=== PATIENT | female | born 1960 | race African-American/Black ===

== ENCOUNTER 2020-09-20 00:28 | Emergency (ER) | payer MEDICARE, MEDICAID, SELFPAY ==
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
[2020-09-20 00:47] VITALS: BP 142/62; PULSE 74; RESP 18; TEMP 36.3; O2SAT 99; BMI 30.7
[2020-09-20 01:22] LABS: MANUAL DIFF FLAG NO
[2020-09-20 01:24] LABS: Basophils Percent Auto 0.6 % (0-2); Eosinophils Absolute Auto 0.3 X10*3/uL (0.0-0.4); Eosinophils Percent Auto 3.9 % (0-4); Hemoglobin 10.5 g/dl (12.0-16.0); Imm Gran Abs Auto 0.03 X10*3/uL (0.00-0.03); Imm Gran Pct Auto 0.4 % (0.0-0.4); Lymphocytes Absolute Auto 2.3 X10*3/uL (1.2-4.9); Lymphocytes Percent Auto 33.6 % (20-40); Mean Corpuscular HGB Conc 32.8 g/dl (31.0-35.0); Mean Corpuscular Hemoglobin 28.6 pg (27.0-33.0); Mean Corpuscular Volume 87.2 fL (80-98); Mean Platelet Volume 9.5 fL (9.4-12.3); Monocytes Absolute Auto 1.1 X10*3/uL (0.1-1.2); Monocytes Percent Auto 15.4 % (2-11); Neutrophils Absolute Auto 3.2 X10*3/uL (2.0-8.3); Neutrophils Percent Auto 46.1 % (45-73); Platelet Count 280 X10*3/uL (160-400); Red Blood Count 3.67 X10*6/uL (4.20-5.50); Red Cell Distribution Width 13.9 % (11.0-16.0); White Blood Count 6.9 X10*3/uL (4.8-10.8)
--- NOTE | 2020-09-20 01:26 | PC.NURSE ---
Patient compliant with lab draw, compliant with COVID swab, pending lab results, currently snacking and refreshing, N faxed/called/spoke with Hanane/confirmed receipt of referral, denied distress, will continue to monitor.
[2020-09-20 01:33] LABS: COVID-19 Test Negative (Negative)
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
[2020-09-20 02:00] LABS: Alanine Aminotransferase 9 U/L (0-31); Albumin Level 3.7 g/dL (3.5-5.0); Alkaline Phosphatase 60 U/L (39-117); Anion Gap 14 (12-20); Aspartate Amino Transferase 8 U/L (5-31); Bilirubin Direct < 0.2 mg/dL (0.0-0.5); Bilirubin Total < 0.2 mg/dL (0.0-1.0); Blood Urea Nitrogen 14 mg/dL (9-16); Calcium 8.9 mg/dL (8.4-10.2); Carbon Dioxide 24 mmol/L (22-29); Chloride 109 mmol/L (96-108); Creatinine Clr Calc Pharmacy 109.8; Estimated Glomerular Filt Rate > 60; Glucose Random 94 mg/dL (60-115); Potassium 4.5 mmol/l (3.3-5.1); Sodium 142 mmol/L (135-145); Total Protein 6.1 g/dL (6.5-8.0)
[2020-09-20 02:11] LABS: Amphetamine Screen Urine Not Detected (Not Detect); Barbiturates, Urine Not Detected (Not Detect); Benzodiazepines Screen Urine Not Detected (Not Detect); Cannabinoid Screen Urine Not Detected (Not Detect); Cocaine Screen Urine Not Detected (Not Detect); Opiate Screen Urine Not Detected (Not Detect); Phencyclidine Screen Urine Not Detected (Not Detect)
[2020-09-20 02:45] LABS: Glucose Urine UA NEG (NEG); Leukocyte Esterase Urine NEG (NEG); Nitrite Urine NEG (NEG); Specific Gravity - Urine 1.015 (1.005-1.025); Urine Blood NEG (NEG); Urine Ketones NEG (NEG); Urine Protein NEG (NEG-TRACE)
[2020-09-20 02:46] LABS: Appearance Urine CLEAR; Color Urine YELLOW
[2020-09-20 06:19] VITALS: BP 103/36; PULSE 68; RESP 17; TEMP 36.3; O2SAT 97
--- NOTE | 2020-09-20 07:00 | PC.NURSE ---
Report received. Pt currently resting, breakfast at bedside. Pt waiting to be seen by N.
[2020-09-20 09:21] VITALS: PULSE 69; RESP 16; TEMP 37.2; O2SAT 98
[2020-09-20 16:57] VITALS: RESP 18
[2020-09-20 17:53] VITALS: BP 126/52; PULSE 83; RESP 20; TEMP 36.6; O2SAT 97
--- NOTE | 2020-09-20 19:00 | PC.NURSE ---
REPORT RECEIVED FROM MARIANNA BOURNE. PATIENT SLEEPING AT THIS TIME, NO ACUTE DISTRESS NOTED. MEDICATION RECONCILATION COMPLETED BY PREVIOUS RN, AWAITING PROVIDER REVIEW/COMPUTER INFORMATION SYSTEMS PROFESSOR. PATIENT PREVIOUSLY SEEN BY Carmen, INPATIENT BEDSEARCH, SECTION 12. WILL CONTINUE TO MONITOR.
--- NOTE | 2020-09-20 21:32 | PC.NURSE ---
PER JAYLENE (CARE TEAM), PATIENT TO BE CONSIDERED FOR ADMISSION TO TOMORROW. PT CONTINUES TO SLEEP, NO ACUTE DISTRESS NOTED. WILL CONTINUE TO MONITOR.
[2020-09-20 21:49] VITALS: BP 146/68; PULSE 76; RESP 16; TEMP 36.4; O2SAT 95
[2020-09-21 04:04] VITALS: RESP 17
--- NOTE | 2020-09-21 04:04 | PC.NURSE ---
PATIENT IS CALM/COOPERATIVE. SLEEPING AT THIS TIME, BUT HAS AWAKEN TO USE BATHROOM. PT ABLE TO MAKE NEEDS KNOWN, AND REMAINS IN BEHAVIORAL CONTROL. PER CARE TEAM, POSSIBLE PLACEMENT TO LATER TODAY OR TOMORROW. WILL CONTINUE TO MONITOR.
--- NOTE | 2020-09-21 05:46 | PC.NURSE ---
PATIENT SHOWERED. NO ACUTE DISTRESS. WILL CONTINUE TO MONITOR.
[2020-09-21 06:00] VITALS: BP 133/73; PULSE 80; RESP 18; TEMP 36.4; O2SAT 96
--- NOTE | 2020-09-21 07:04 | PC.NURSE ---
Report recieved. Pt currently eating breakfast, calm and cooperative. Denies complaints. Pt is inpatient bedsearch.
[2020-09-21 09:04] VITALS: BP 145/69; PULSE 76; TEMP 36.9; O2SAT 98
--- NOTE | 2020-09-21 16:27 | PC.NURSE ---
Pt cleared by [facility] for discharge back to senior care. food and beverage director Kerrie contacted [phone], she stated they do not have enough staff and requested for PT to stay in Emergency room until tomorrow, Kerrie was told that pt is medically and psychiatrically cleared and will need to return to senior care today. Kerrie said she would try to figure something out and call back. Provider notified.
[2020-09-21 16:37] VITALS: BP 144/80; PULSE 66; RESP 17; TEMP 36.6; O2SAT 98
== END 2020-09-21 18:02 | disposition home or self-care (01) ==
PROVIDERS: Emergency Provider Emergency Medicine
DX: F31.9 Bipolar disorder, unspecified (principal); Z20.822 Contact with and (suspected) exposure to COVID-19; Z79.899 Other long term (current) drug therapy
CPT/HCPCS: 36415; 80048; 80076; 80307; 81003; 85025; 87635; 99284; 99285

== ENCOUNTER 2022-03-24 18:54 | Emergency (ER) | payer OTHER, SELFPAY ==
--- NOTE | ~2022-03-24 | XR_ITS ---
EXAMINATION: XR KUB CLINICAL INDICATION: Reason for Exam constipation x 6 days COMPARISON: KUB 11/19/2013 TECHNIQUE: AP view of the abdomen. XR/XR KUB FINDINGS/IMPRESSION: * Gaseous distention of the right colon with a marked volume of stool within the left colon. Gas and stool is present in the rectum, suggesting a nonobstructive pattern. * No abnormal calcifications to suggest nephrolithiasis
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
[2022-03-24 19:34] VITALS: BMI 31.4
[2022-03-24 19:52] VITALS: BP 142/70; PULSE 81; RESP 18; TEMP 36.2; O2SAT 97
[2022-03-24 19:54] LABS: Glucose, Whole Blood 112 mg/dL (60-115)
[2022-03-24 21:01] LABS: COVID-19 Test Negative (Negative)
[2022-03-24 21:03] LABS: Anion Gap 15 (12-20); Blood Urea Nitrogen 18 mg/dL (9-16); Calcium 9.8 mg/dL (8.4-10.2); Carbon Dioxide 24 mmol/L (22-29); Chloride 105 mmol/L (96-108); Creatinine Clr Calc Pharmacy 95.9; Estimated Glomerular Filt Rate > 60; Glucose Random 121 mg/dL (60-115); Potassium 4.4 mmol/L (3.3-5.1); Sodium 140 mmol/L (135-145)
[2022-03-24 21:24] LABS: TSH reflex Free T4 0.41 uIU/mL (0.32-4.0)
[2022-03-24 21:32] LABS: MANUAL DIFF FLAG NO
[2022-03-24 21:35] LABS: Basophils Absolute Auto 0.1 X10*3/uL (0.0-0.2); Basophils Percent Auto 0.7 % (0-2); Eosinophils Absolute Auto 0.4 X10*3/uL (0.0-0.4); Eosinophils Percent Auto 5.3 % (0-4); Hematocrit 33.6 % (37.0-47.0); Hemoglobin 11.1 g/dl (12.0-16.0); Imm Gran Abs Auto 0.06 X10*3/uL (0.00-0.03); Imm Gran Pct Auto 0.7 % (0.0-0.4); Lymphocytes Absolute Auto 2.5 X10*3/uL (1.2-4.9); Lymphocytes Percent Auto 30.7 % (20-40); Mean Corpuscular Volume 84.6 fL (80.0-98.0); Monocytes Absolute Auto 0.6 X10*3/uL (0.1-1.2); Monocytes Percent Auto 7.7 % (2-11); Neutrophils Absolute Auto 4.5 x10*3/uL (2.0-8.3); Neutrophils Percent Auto 54.9 % (45-73); Platelet Count 254 X10*3/uL (160-400); Red Blood Count 3.97 X10*6/uL (4.20-5.50); Red Cell Distribution Width 13.3 % (11.0-16.0); White Blood Count 8.2 X10*3/uL (4.8-10.8)
[2022-03-24 21:54] LABS: Valproate 64.3 mcg/mL (50.0-100.0)
[2022-03-24 22:08] LABS: Appearance Urine HAZY; Color Urine YELLOW; Glucose Urine UA NEG (NEG); Leukocyte Esterase Urine 1+ (NEG); Nitrite Urine NEG (NEG); PH 5.5 (5.0-8.0); Specific Gravity - Urine >= 1.030 (1.005-1.025); UACC Culture Trigger YES; Urine Blood NEG (NEG); Urine Ketones 15 MG/DL (NEG); Urine Protein NEG (NEG-TRACE)
[2022-03-24 22:23] LABS: Amphetamine Screen Urine Not Detected (Not Detect); Barbiturates, Urine Not Detected (Not Detect); Benzodiazepines Screen Urine Not Detected (Not Detect); Cannabinoid Screen Urine Not Detected (Not Detect); Cocaine Screen Urine Not Detected (Not Detect); Fentanyl, urine Not Detected (Not Detect); Opiate Screen Urine Not Detected (Not Detect); Phencyclidine Screen Urine Not Detected (Not Detect)
[2022-03-24 22:25] LABS: Bacteria Urine 2+ /LPF; Mucus Urine 1+ /LPF; Squamous Epithelial Cell Urine 2+ /LPF
[2022-03-25 01:03] VITALS: BP 138/70; PULSE 87; RESP 16; TEMP 35.7; O2SAT 96
[2022-03-25] MEDS: polyethylene glycoL 3350 17 GM POWD.PACK PO ×2 (02:38→21:30)
[2022-03-25] MEDS: Nicotine Polacrilex 2 MG GUM BUCCAL ×4 (02:43→20:36)
--- NOTE | 2022-03-25 06:34 | PC.NURSE ---
Patient slept through the night, out of room for bathroom use x4, report complain of constipation Miralax administered at 0238 pending effect, med rec completed/MAR active, behavior unpredictable, BHN assessed the patient, disposition pending, norberto follow up in the morning, VSS, will continue to monitor
--- NOTE | 2022-03-25 07:18 | PC.NURSE ---
patient appears to remain asleep at present respirations are even and unlabored patient appears in no distress
--- NOTE | 2022-03-25 07:35 | PHA.MEDREC ---
Pharmacy Consult ? Medication Reconciliation Pharmacy has completed the medication reconciliation. Benztropine and clozapine entered incorrectly by overnight
[2022-03-25 07:49] VITALS: BP 125/71; PULSE 78; RESP 12; O2SAT 97
[2022-03-25] MEDS: hydrALAZINE HCl 25 MG TABLET PO ×2 (08:45→21:27)
[2022-03-25] MEDS: metFORMIN HCl 1,000 MG TABLET 1000 MG PO (08:45)
[2022-03-25] MEDS: Benztropine Mesylate 1 MG TABLET PO ×2 (08:45→21:28)
[2022-03-25] MEDS: cloZAPine 100 MG, cloZAPine 25 MG 125 MG PO (08:45)
--- NOTE | 2022-03-25 14:58 | MHC.CARE ---
Addendum entered by Sayda Guo, [facility] 03/25/22 17:38: [facility] [phone] Original Note: Per Astrid from [facility] crisis pt is cleared for D/c, however she has been struggling to get in touch with the correct person over at [facility]; has left voicemails. CARE Team recieved call from Alexis at [facility], who reports that they are not going to be taking pt back. CARE Team discussed the need for placement change with Leona from case management.
[2022-03-25] MEDS: Magnesium Citrate 300 ML SOLUTION PO (15:52)
--- NOTE | 2022-03-25 17:39 | MHC.CARE ---
Alexis calls back and reports that he has been in contact with [facility]. He reports that [facility] will not be taking pt back to their facility, siting that they were not aware of her full history. Alexis provides contact information for Dr. March [phone] who is willing to provide information to [facility] psych provider. Plan is for psych consult kevan.
[2022-03-25] MEDS: Divalproex Sodium ER 500 MG TAB.ER.24H 1000 MG PO (21:27)
[2022-03-25] MEDS: cloZAPine 200 MG, cloZAPine 25 MG 225 MG PO (21:27)
[2022-03-25] MEDS: Melatonin 3 MG TABLET PO (21:28)
[2022-03-25] MEDS: Divalproex Sodium ER 250 MG TAB.ER.24H PO (21:29)
[2022-03-25 21:54] VITALS: BP 120/46; PULSE 82
[2022-03-25 22:00] VITALS: BP 116/59
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
[2022-03-26 06:41] VITALS: BP 138/56; PULSE 75; RESP 18; TEMP 36.4; O2SAT 97
--- NOTE | 2022-03-26 07:25 | PC.NURSE ---
patient appears to remain at rest at present respirations are even and unlabored patient appears in no distress
[2022-03-26] MEDS: Nicotine Polacrilex 2 MG GUM BUCCAL ×4 (09:07→20:53)
--- NOTE | 2022-03-26 10:02 | MHC.CM.PN ---
Call placed to Ashlyn Torre re: patient placement. Awaiting return call.
[2022-03-26] MEDS: polyethylene glycoL 3350 17 GM POWD.PACK PO ×2 (11:18→20:41)
[2022-03-26] MEDS: cloZAPine 100 MG, cloZAPine 25 MG 125 MG PO (11:18)
[2022-03-26] MEDS: Divalproex Sodium ER 250 MG TAB.ER.24H PO ×2 (11:19→21:37)
[2022-03-26] MEDS: Benztropine Mesylate 1 MG TABLET PO ×2 (11:19→20:41)
[2022-03-26] MEDS: metFORMIN HCl 1,000 MG TABLET 1000 MG PO (11:19)
[2022-03-26] MEDS: hydrALAZINE HCl 25 MG TABLET PO ×2 (11:19→20:41)
[2022-03-26] MEDS: Simethicone 80 MG TAB.CHEW PO ×3 (13:59→20:41)
[2022-03-26] MEDS: Lactulose 20 GM/30 ML SOLUTION PO ×2 (13:59→20:41)
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
--- NOTE | 2022-03-26 14:17 | MHC.SW.PN ---
This typewriter repairer called Alexis at [facility] to provide a clinical update that the patient had continued to be psychiatrically cleared by N, the [facility] team, and by a accounting officer in addition to being medically cleared. Alexis reported [facility] would not accept transfer of the patient to return to her LTC facility. Alexis reported that during the four months the patient has been a resident she only had one other period of agitation which occurred within the first few days of her arriving to the facility. No behavioral plan was ever needed. Alexis initially stated that [facility] was not aware of her history of agitation but when this typewriter repairer suggested a group call with the patient's [facility] case resource manager Alvarado, Alexis reported that the facility was aware of her history but that she had not demonstrated any periods of agitation while admitted to [facility]. This typewriter repairer inquired if [facility] was working with anyone from the state for additional resources to care for this patient or start exploring the transfer process. Alexis stated that he had called [facility] but has not yet connected with anyone. This typewriter repairer expressed significant concern that [facility] was not willing to trial any behavioral plan or additional accommodations that could be provided by [facility]. This typewriter repairer has reached out the [facility] and requested a team meeting with [facility].
--- NOTE | 2022-03-26 14:22 | PC.NURSE ---
Pt seen this date for individual OT tx this date. Pt presents bright, alert, nonsensical, and with flat affect. Pt is highly preseverative with regard to discharging back to her nursing home. Pt provided with , coloring pages, word find, and sensory item to occupy her time in the POD.
[2022-03-26 14:53] LABS: Alanine Aminotransferase 66 U/L (0-31); Albumin Level 4.1 g/dL (3.5-5.0); Alkaline Phosphatase 67 U/L (39-117); Anion Gap 18 (12-20); Aspartate Amino Transferase 48 U/L (5-31); Bilirubin Total < 0.2 mg/dL (0.0-1.0); Blood Urea Nitrogen 12 mg/dL (9-16); Calcium 9.4 mg/dL (8.4-10.2); Carbon Dioxide 20 mmol/L (22-29); Chloride 108 mmol/L (96-108); Creatinine Clr Calc Pharmacy 117.6; Estimated Glomerular Filt Rate > 60; Glucose Random 133 mg/dL (60-115); Potassium 4.6 mmol/L (3.3-5.1); Sodium 141 mmol/L (135-145)
[2022-03-26 19:01] VITALS: BP 150/77; PULSE 79; RESP 18; TEMP 36.1; O2SAT 98
[2022-03-26] MEDS: Divalproex Sodium ER 500 MG TAB.ER.24H 1000 MG PO (20:41)
[2022-03-26] MEDS: Melatonin 3 MG TABLET PO (20:41)
--- NOTE | 2022-03-26 21:30 | PC.NURSE ---
Medication delay due to meds not loaded in pyxis. Pharmacy delivering medications.
[2022-03-26] MEDS: cloZAPine 200 MG, cloZAPine 25 MG 225 MG PO (21:37)
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
--- NOTE | 2022-03-27 07:45 | PC.NURSE ---
patient appears to remain at rest at present, already had morning bathroom trip to restroom, patient seems approriately behaved/cooperative patient appears in no distress
[2022-03-27] MEDS: Benztropine Mesylate 1 MG TABLET PO ×2 (08:27→20:15)
[2022-03-27] MEDS: Divalproex Sodium ER 250 MG TAB.ER.24H PO ×2 (08:28→20:22)
[2022-03-27] MEDS: cloZAPine 100 MG, cloZAPine 25 MG 125 MG PO (08:28)
[2022-03-27] MEDS: polyethylene glycoL 3350 17 GM POWD.PACK PO ×2 (08:28→20:15)
[2022-03-27] MEDS: metFORMIN HCl 1,000 MG TABLET 1000 MG PO (08:28)
[2022-03-27] MEDS: Lactulose 20 GM/30 ML SOLUTION PO ×3 (08:28→19:58)
[2022-03-27] MEDS: hydrALAZINE HCl 25 MG TABLET PO ×2 (08:29→20:15)
[2022-03-27] MEDS: Simethicone 80 MG TAB.CHEW PO ×3 (08:29→20:15)
[2022-03-27 08:39] VITALS: BP 141/73; PULSE 102; RESP 18; O2SAT 97
[2022-03-27] MEDS: Nicotine Polacrilex 2 MG GUM BUCCAL ×3 (08:51→18:41)
--- NOTE | 2022-03-27 14:43 | PC.NURSE ---
Attempt made to engage pt in OT tx however upon approach pt found to be sleeping soundly (snoring) and does not respond to this check writer. Pts attending nurse notified and aware.
--- NOTE | 2022-03-27 18:28 | MHC.CM.ED ---
Per Alexis Palomares form [facility] will be in to see patient on 03/28 @ 12 noon. CM to follow for d/c needs.
[2022-03-27 19:01] VITALS: BP 145/74; PULSE 89; RESP 18; TEMP 36.1; O2SAT 97
[2022-03-27] MEDS: Divalproex Sodium ER 500 MG TAB.ER.24H 1000 MG PO (20:15)
[2022-03-27] MEDS: Melatonin 3 MG TABLET PO (20:15)
[2022-03-27] MEDS: cloZAPine 200 MG, cloZAPine 25 MG 225 MG PO (20:22)
[2022-03-27 20:36] VITALS: BP 154/81; PULSE 96; RESP 18; O2SAT 98
[2022-03-28 06:06] VITALS: RESP 17
[2022-03-28 06:25] VITALS: BP 133/70; PULSE 87; RESP 17; TEMP 36.4; O2SAT 97
--- NOTE | 2022-03-28 06:34 | PC.NURSE ---
Patient slept through the night, no distress observed/reported, medication compliant, behavior non concerning at this time, thought process tangential, patient is cleared by [facility], patient is currently a case management case, will continue to monitor.
[2022-03-28 07:45] VITALS: BP 147/70; PULSE 98; RESP 17; TEMP 36; O2SAT 95
[2022-03-28] MEDS: Simethicone 80 MG TAB.CHEW PO ×3 (08:00→20:32)
[2022-03-28] MEDS: Lactulose 20 GM/30 ML SOLUTION PO ×3 (08:00→20:32)
[2022-03-28] MEDS: hydrALAZINE HCl 25 MG TABLET PO ×2 (08:00→20:32)
[2022-03-28] MEDS: metFORMIN HCl 1,000 MG TABLET 1000 MG PO (08:00)
[2022-03-28] MEDS: polyethylene glycoL 3350 17 GM POWD.PACK PO ×2 (08:01→20:32)
[2022-03-28] MEDS: cloZAPine 100 MG, cloZAPine 25 MG 125 MG PO (08:01)
[2022-03-28] MEDS: Divalproex Sodium ER 250 MG TAB.ER.24H PO ×2 (08:01→20:32)
[2022-03-28] MEDS: Nicotine Polacrilex 2 MG GUM BUCCAL ×4 (08:01→19:15)
[2022-03-28] MEDS: Benztropine Mesylate 1 MG TABLET PO ×2 (08:01→20:32)
[2022-03-28] MEDS: Calcium Carbonate 750 MG TAB.CHEW PO (11:07)
--- NOTE | 2022-03-28 12:32 | MHC.CARE ---
CARE team present while Alexis from [facility] interview pt for possible return back to facility. He reported that he he needed to meet with the Tx team at [facility] to determine the decision to return.
--- NOTE | 2022-03-28 15:44 | PC.NURSE ---
assumed care of pt, pt asking repeated questions about returning to [facility], some difficulty redirecting, currently waiting to hear back from [facility] RE: pt placement.
[2022-03-28] MEDS: Melatonin 3 MG TABLET PO (20:32)
[2022-03-28] MEDS: Divalproex Sodium ER 500 MG TAB.ER.24H 1000 MG PO (20:32)
[2022-03-28] MEDS: cloZAPine 200 MG, cloZAPine 25 MG 225 MG PO (20:32)
[2022-03-28 20:39] VITALS: BP 176/76; PULSE 97; RESP 20; TEMP 36.1; O2SAT 95
--- NOTE | 2022-03-29 06:52 | PC.NURSE ---
Patient slept through the night, no distress observed/reported, medication compliant, behavior non concerning at this time, patient is currently a case management case may return back to [facility], patient had an episode of bladder incontinence, VSS, will continue to monitor.
[2022-03-29 06:59] VITALS: BP 143/77; PULSE 88; RESP 17; TEMP 36.8; O2SAT 95
--- NOTE | 2022-03-29 07:21 | PC.NURSE ---
patient appears to remain at rest at present respirations are even and unlabored patient appears in no distress
[2022-03-29] MEDS: polyethylene glycoL 3350 17 GM POWD.PACK PO ×2 (08:31→20:54)
[2022-03-29] MEDS: Lactulose 20 GM/30 ML SOLUTION PO ×3 (08:31→20:54)
[2022-03-29] MEDS: Benztropine Mesylate 1 MG TABLET PO ×2 (08:32→20:55)
[2022-03-29] MEDS: Divalproex Sodium ER 250 MG TAB.ER.24H PO ×2 (08:32→20:47)
[2022-03-29] MEDS: Simethicone 80 MG TAB.CHEW PO ×3 (08:32→20:54)
[2022-03-29] MEDS: metFORMIN HCl 1,000 MG TABLET 1000 MG PO (08:32)
[2022-03-29] MEDS: hydrALAZINE HCl 25 MG TABLET PO ×2 (08:32→20:54)
[2022-03-29] MEDS: cloZAPine 100 MG, cloZAPine 25 MG 125 MG PO (08:32)
[2022-03-29] MEDS: Nicotine Polacrilex 2 MG GUM BUCCAL ×4 (08:40→21:08)
--- NOTE | 2022-03-29 12:55 | PC.NURSE ---
resting/sleeping in bed since this Rn arrival at 11am.
--- NOTE | 2022-03-29 13:27 | PC.NURSE ---
Sitting by nurses station. Calm, conversing, talking about people from facility, clothes being taken. Steady on feet. Unlabored resp, skin pwd
[2022-03-29 17:41] VITALS: BP 114/64; PULSE 85; TEMP 36.6
[2022-03-29] MEDS: cloZAPine 200 MG, cloZAPine 25 MG 225 MG PO (20:47)
[2022-03-29] MEDS: Divalproex Sodium ER 500 MG TAB.ER.24H 1000 MG PO (20:54)
[2022-03-29] MEDS: Melatonin 3 MG TABLET PO (20:55)
[2022-03-30 00:09] VITALS: BP 169/81; PULSE 100; RESP 17; TEMP 36.1; O2SAT 98
--- NOTE | 2022-03-30 06:26 | PC.NURSE ---
Patient slept through the night, no distress observed/reported, medication compliant, behavior non concerning at this time, patient is currently a case management case may return back to [facility], VSS, will continue to monitor.
[2022-03-30 08:28] VITALS: BP 148/67; PULSE 93; RESP 16; TEMP 36.3; O2SAT 96
[2022-03-30] MEDS: cloZAPine 100 MG, cloZAPine 25 MG 125 MG PO (08:31)
[2022-03-30] MEDS: metFORMIN HCl 1,000 MG TABLET 1000 MG PO (08:31)
[2022-03-30] MEDS: Benztropine Mesylate 1 MG TABLET PO ×2 (08:31→20:04)
[2022-03-30] MEDS: Divalproex Sodium ER 250 MG TAB.ER.24H PO ×2 (08:31→20:05)
[2022-03-30] MEDS: polyethylene glycoL 3350 17 GM POWD.PACK PO ×2 (08:31→20:04)
[2022-03-30] MEDS: hydrALAZINE HCl 25 MG TABLET PO ×2 (08:32→20:04)
[2022-03-30] MEDS: Simethicone 80 MG TAB.CHEW PO ×3 (08:32→20:04)
--- NOTE | 2022-03-30 08:39 | PC.NURSE ---
pt a/o x 3 no sob/maxx noted skin pink warm dry speaks in full sentences. denies any si/hi. amb (i) gait steady. pt aware of plan of care. pt refused lactulose this am stating that she had a bm earlier this am.
[2022-03-30] MEDS: Nicotine Polacrilex 2 MG GUM BUCCAL ×2 (08:43→13:45)
--- NOTE | 2022-03-30 11:39 | MHC.CM.ED ---
Patient remains in ER Pod. Patient is a LTC resident of [facility] since November. Patient came to the ER under a section 12. Patient was cleared. [facility] visited patient on-site on Thursday. Do not anticipate to hear anything about patient returning to [facility] before Thursday. Continue to monitor for d/c needs.
[2022-03-30 15:53] VITALS: BP 137/77; PULSE 104; RESP 16; TEMP 36.3; O2SAT 96
--- NOTE | 2022-03-30 16:12 | PC.NURSE ---
calm. taking meds as ordered. no outbursts. showering at this time.
[2022-03-30] MEDS: Divalproex Sodium ER 500 MG TAB.ER.24H 1000 MG PO (20:04)
[2022-03-30] MEDS: Melatonin 3 MG TABLET PO (20:04)
[2022-03-30] MEDS: cloZAPine 200 MG, cloZAPine 25 MG 225 MG PO (20:05)
[2022-03-30 23:52] VITALS: RESP 18
--- NOTE | 2022-03-31 06:14 | PC.NURSE ---
Patient slept through the night, no distress observed/reported, medication compliant, refused HS lactulose by reporting that her bowel movement is now fine, behavior non concerning at this time, patient is currently a case management case, no update on returning back to [facility], VSS, will continue to monitor.
--- NOTE | 2022-03-31 07:40 | PC.NURSE ---
this instructional writer assumed care of this pt at 0700, pt in room eating breakfast. no complaints.
[2022-03-31 07:51] VITALS: BP 169/76; PULSE 83; RESP 16; TEMP 36.2; O2SAT 95
[2022-03-31] MEDS: metFORMIN HCl 1,000 MG TABLET 1000 MG PO (08:22)
[2022-03-31] MEDS: Benztropine Mesylate 1 MG TABLET PO ×2 (08:22→20:54)
[2022-03-31] MEDS: Simethicone 80 MG TAB.CHEW PO ×3 (08:22→20:54)
[2022-03-31 08:23] LABS: Neut%MD 42.2 %; Neutrophils Absolute Auto 3.2 x10*3/uL (2.0-8.3); WBCANC 7.5 X10*3/uL
[2022-03-31] MEDS: polyethylene glycoL 3350 17 GM POWD.PACK PO ×2 (08:24→20:54)
[2022-03-31] MEDS: hydrALAZINE HCl 25 MG TABLET PO ×2 (08:25→20:54)
[2022-03-31] MEDS: Nicotine Polacrilex 2 MG GUM BUCCAL ×3 (08:27→22:13)
--- NOTE | 2022-03-31 08:42 | PC.NURSE ---
Addendum entered by Josh Calvillo RN 03/31/22 08:45: PT REQUESTED NICORETTE GUM, GUM GIVEN DOCUMENTED. Original Note: THIS ROLLER COASTER ENGINEER ASSUMED CARE OF THIS PT AT 0700. PT ATE BREAKFAST IN HER ROOM. MEDS GIVEN DOCUMENTED. PT CURRENTLY SITTING IN COMMON AREA. NO COMPLAINTS. WILL CONTINUE TO OBSERVE.
[2022-03-31] MEDS: cloZAPine 100 MG, cloZAPine 25 MG 125 MG PO (09:20)
[2022-03-31] MEDS: Divalproex Sodium ER 250 MG TAB.ER.24H PO ×2 (09:20→20:54)
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
[2022-03-31] MEDS: Divalproex Sodium ER 500 MG TAB.ER.24H 1000 MG PO (20:54)
[2022-03-31] MEDS: cloZAPine 200 MG, cloZAPine 25 MG 225 MG PO (20:54)
[2022-03-31] MEDS: Melatonin 3 MG TABLET PO (20:54)
[2022-03-31 20:59] VITALS: BP 171/73; PULSE 92; RESP 16; O2SAT 96
--- NOTE | 2022-04-01 05:42 | PC.NURSE ---
Patient slept through the night, no distress observed/reported, medication compliant, refused HS lactulose, behavior non concerning at this time, patient is currently a case management case, no update on returning back to [facility], VSS, will continue to monitor
--- NOTE | 2022-04-01 07:20 | PC.NURSE ---
patient appears to remain asleep at present respirations are even and unlabored patient appears in no distress
[2022-04-01] MEDS: Benztropine Mesylate 1 MG TABLET PO ×2 (08:50→20:29)
[2022-04-01] MEDS: Nicotine Polacrilex 2 MG GUM BUCCAL ×3 (08:54→18:17)
[2022-04-01] MEDS: Divalproex Sodium ER 250 MG TAB.ER.24H PO ×2 (08:54→20:35)
[2022-04-01] MEDS: polyethylene glycoL 3350 17 GM POWD.PACK PO ×2 (08:54→20:29)
[2022-04-01] MEDS: Simethicone 80 MG TAB.CHEW PO ×3 (08:54→20:29)
[2022-04-01] MEDS: cloZAPine 100 MG, cloZAPine 25 MG 125 MG PO (08:55)
[2022-04-01] MEDS: hydrALAZINE HCl 25 MG TABLET PO ×2 (08:55→21:11)
[2022-04-01] MEDS: metFORMIN HCl 1,000 MG TABLET 1000 MG PO (08:56)
--- NOTE | 2022-04-01 15:19 | PC.NURSE ---
Attempt made to engage pt in individual OT tx however pt presents highly nonsensical and unable to participate in various interventions provided.
[2022-04-01] MEDS: Calcium Carbonate 750 MG TAB.CHEW PO (17:14)
[2022-04-01] MEDS: Lactulose 20 GM/30 ML SOLUTION PO (20:28)
[2022-04-01] MEDS: Divalproex Sodium ER 500 MG TAB.ER.24H 1000 MG PO (20:29)
[2022-04-01] MEDS: Melatonin 3 MG TABLET PO (20:29)
[2022-04-01] MEDS: cloZAPine 200 MG, cloZAPine 25 MG 225 MG PO (20:35)
[2022-04-02 00:16] VITALS: BP 148/88; PULSE 95; RESP 17; TEMP 36.1; O2SAT 97
[2022-04-02 03:57] LABS: Clozapine (Clozaril) 798 mcg/L; Norclozapine 217 mcg/L (25-400)
--- NOTE | 2022-04-02 06:23 | PC.NURSE ---
Patient slept through the night, no distress observed/reported, medication compliant, behavior non concerning at this time, patient is currently a case management case, no update on returning back to [facility], VSS, will continue to monitor
[2022-04-02 06:46] LABS: Appearance Urine CLEAR; Color Urine YELLOW; Glucose Urine UA NEG (NEG); Leukocyte Esterase Urine 1+ (NEG); Nitrite Urine NEG (NEG); PH 6.5 (5.0-8.0); UACC Culture Trigger YES; Urine Blood NEG (NEG); Urine Ketones 15 MG/DL (NEG); Urine Protein NEG (NEG-TRACE)
[2022-04-02 06:53] LABS: Bacteria Urine 1+ /LPF; Squamous Epithelial Cell Urine 1+ /LPF
--- NOTE | 2022-04-02 07:00 | PC.NURSE ---
patient appears to remain at rest at present respirations are even and unlabored patient appears in no distress
[2022-04-02] MEDS: Nicotine Polacrilex 2 MG GUM BUCCAL ×4 (07:47→20:09)
[2022-04-02] MEDS: polyethylene glycoL 3350 17 GM POWD.PACK PO ×2 (08:31→20:03)
[2022-04-02] MEDS: Divalproex Sodium ER 250 MG TAB.ER.24H PO ×2 (08:36→20:03)
[2022-04-02] MEDS: cloZAPine 100 MG, cloZAPine 25 MG 125 MG PO (08:36)
[2022-04-02] MEDS: Benztropine Mesylate 1 MG TABLET PO ×2 (08:36→20:07)
[2022-04-02] MEDS: hydrALAZINE HCl 25 MG TABLET PO ×2 (08:37→20:02)
[2022-04-02] MEDS: metFORMIN HCl 1,000 MG TABLET 1000 MG PO (08:37)
[2022-04-02] MEDS: Simethicone 80 MG TAB.CHEW PO ×3 (08:37→20:03)
--- NOTE | 2022-04-02 14:45 | PC.NURSE ---
Pt engaged in individual OT tx this date. Pt is unreceptive to various OT activity interventions provided however is receptive to conversation with this DARIA/L with frequent redirection of reiteration secondary to persistent nonsensical speech. Pt presents agreeable, bright, and without aggression on this day.
[2022-04-02 16:24] VITALS: BP 125/61; PULSE 92; RESP 15; TEMP 36.5; O2SAT 95
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
[2022-04-02 19:23] LABS: MANUAL DIFF FLAG NO
[2022-04-02 19:26] LABS: Basophils Percent Auto 0.4 % (0-2); Eosinophils Absolute Auto 0.3 X10*3/uL (0.0-0.4); Eosinophils Percent Auto 3.8 % (0-4); Hematocrit 35.2 % (37.0-47.0); Hemoglobin 11.6 g/dl (12.0-16.0); Imm Gran Abs Auto 0.15 X10*3/uL (0.00-0.03); Lymphocytes Absolute Auto 2.7 X10*3/uL (1.2-4.9); Lymphocytes Percent Auto 35.8 % (20-40); Mean Corpuscular Hemoglobin 28.1 pg (27.0-33.0); Mean Corpuscular Volume 85.2 fL (80.0-98.0); Mean Platelet Volume 9.9 fL (9.4-12.3); Monocytes Absolute Auto 0.7 X10*3/uL (0.1-1.2); Monocytes Percent Auto 9.8 % (2-11); Neutrophils Absolute Auto 3.6 x10*3/uL (2.0-8.3); Neutrophils Percent Auto 48.2 % (45-73); Platelet Count 277 X10*3/uL (160-400); Red Blood Count 4.13 X10*6/uL (4.20-5.50); Red Cell Distribution Width 13.3 % (11.0-16.0); White Blood Count 7.5 X10*3/uL (4.8-10.8)
[2022-04-02 19:31] VITALS: BP 135/71; PULSE 101; RESP 17; O2SAT 96
[2022-04-02 19:39] LABS: Ammonia 30 umol/L (13-55)
[2022-04-02 19:46] LABS: Alanine Aminotransferase 50 U/L (0-31); Albumin Level 4.3 g/dL (3.5-5.0); Alkaline Phosphatase 68 U/L (39-117); Aspartate Amino Transferase 24 U/L (5-31); Bilirubin Direct < 0.2 mg/dL (0.0-0.5); Bilirubin Total < 0.2 mg/dL (0.0-1.0); Creatinine Clr Calc Pharmacy 90.4; Estimated Glomerular Filt Rate > 60; Total Protein 6.8 g/dL (6.5-8.0)
[2022-04-02 19:48] LABS: Valproate 68.7 mcg/mL (50.0-100.0)
[2022-04-02] MEDS: cloZAPine 200 MG, cloZAPine 25 MG 225 MG PO (20:02)
[2022-04-02] MEDS: Divalproex Sodium ER 500 MG TAB.ER.24H 1000 MG PO (20:02)
[2022-04-02] MEDS: Lactulose 20 GM/30 ML SOLUTION PO (20:03)
[2022-04-02] MEDS: Melatonin 3 MG TABLET PO (20:03)
--- NOTE | 2022-04-03 06:00 | PC.NURSE ---
Patient slept through the night, no distress observed/reported, medication compliant, behavior non concerning/follows direction well, VSS, case management coordinating d/c back to [facility] seems unlikely, elimination intact, appetite adequate, will continue to monitor
--- NOTE | 2022-04-03 07:05 | PC.NURSE ---
patient appears to remain asleep at present respirations are even and unlabored patient appears in no distress
[2022-04-03] MEDS: hydrALAZINE HCl 25 MG TABLET PO (08:48)
[2022-04-03] MEDS: metFORMIN HCl 1,000 MG TABLET 1000 MG PO (08:48)
[2022-04-03] MEDS: Simethicone 80 MG TAB.CHEW PO (08:48)
[2022-04-03] MEDS: Nicotine Polacrilex 2 MG GUM BUCCAL ×2 (08:48→14:44)
[2022-04-03] MEDS: polyethylene glycoL 3350 17 GM POWD.PACK PO (08:48)
[2022-04-03] MEDS: Benztropine Mesylate 1 MG TABLET PO (08:48)
[2022-04-03] MEDS: cloZAPine 100 MG, cloZAPine 25 MG 125 MG PO (08:49)
[2022-04-03] MEDS: Divalproex Sodium ER 250 MG TAB.ER.24H PO (08:49)
--- NOTE | 2022-04-03 11:41 | MHC.CM.ED ---
Received notification from Soila Daley, that patient can return to [facility] at or after 330pm. [facility] booked for 330pm. [facility] with chart. Patient, guardian, Henna CABRAL and Kendell GARDINER aware. Clinical updates sent to [facility] via [facility]. Continue to monitor for d/c needs.
--- NOTE | 2022-04-03 12:49 | MHC.CM.PN ---
Addendum entered by Soila Daley 04/03/22 13:12: Spoke w/ guardian communicate patient will return to [facility] with 1: provided by [facility]. Agreed with plan. Original Note: This com writer has attempted multiple times to place phone call to Vasu Beckham re: pt's return to [facility] all w/ busy signal. Will attempt to send email.
== END 2022-04-03 15:37 | disposition skilled nursing facility (03) ==
PROVIDERS: Emergency Medicine; Psychiatry & Neurology Psychiatry; Social Worker; Emergency Provider Emergency Medicine Emergency Medical Services; PCP Internal Medicine
DX: R45.850 Homicidal ideations (principal); N39.0 Urinary tract infection, site not specified; K59.00 Constipation, unspecified; F25.0 Schizoaffective disorder, bipolar type; E11.9 Type 2 diabetes mellitus without complications; K21.9 Gastro-esophageal reflux disease without esophagitis; E78.5 Hyperlipidemia, unspecified; J44.9 Chronic obstructive pulmonary disease, unspecified; F79 Unspecified intellectual disabilities; Z20.822 Contact with and (suspected) exposure to COVID-19; Z79.899 Other long term (current) drug therapy; Z79.84 Long term (current) use of oral hypoglycemic drugs; Z79.02 Long term (current) use of antithrombotics/antiplatelets; Z87.891 Personal history of nicotine dependence
CPT/HCPCS: 36415; 74018; 80048; 80053; 80076; 80159; 80164; 80307; 81001; 82140; 82565; 82947; 84443; 85025; 85048; 87086; 87635; 99285